=== PATIENT | male | born 2000 | race Caucasian/White ===

== ENCOUNTER 2019-12-06 10:28 | Outpatient (CLI) | payer OTHER ==
[~2019-12-06] VITALS: Ht 175.3 cm; Wt 59.4 kg
[2019-12-06 11:01] VITALS: BP 127/79; Ht 175.3 cm; Wt 59.4 kg
--- NOTE | 2019-12-06 11:50 | NUR ---
1115 DR VINCENT AT BEDSIDE TO TALK TO PT 1135 PT DISCHARGED FROM OUT PT WITH RX FOR INSTRUCTIONS TO NOT LIFT GREATER THAN 5LBS FOR 2 WEEKS
--- NOTE | 2019-12-07 08:14 | CN ---
PATIENT NAME:SHAISTA MORAN MEDICAL RECORD: [id number] : 98 LOCATION:[facility] ADMIT DATE: ACCOUNT: [id number] CONSULTING PHYSICIAN: MONTRELL VINCENT MD REFERRING PHYSICIAN: ELSA CONTEH MD DATE OF CONSULTATION: 12/06/2019 HISTORY: Mr. Moran was referred by us to Dr. Conteh. He is a 19-year-old white male in good health. Mr. Moran was experiencing some testicular pain, had ultrasound and examination by Dr. Conteh, which found both testicles to be normal. The patient does relate that he did have occasional discomfort and pain, and felt like his testicles had moved and were causing some discomfort when he would lie on his side and wake up after sleeping on his side at night. The patient also related that he was having some discomfort upon washing himself and in the testicular region. The patient related that his pain after examination from Dr. Conteh was about 7/10 and lasted for about 2-3 days. The patient presents today and relates that his pain is significantly improved and is probably 0/10. The patient also relates that however upon washing himself this morning, that his pain was about a 2/3 in the testicular area. The patient seems to relate that his pain is worse on the right side as opposed to the left side. The patient does relate some work history, lifts heavy pallets at work and related that the night that he first noticed the injury or the pain that he had been lifting some pallets and felt a strain or "tear" in that particular area. The patient was questioned if Dr. Conteh had felt for hernia examination and the patient related that Dr. Conteh had and that patient was negative for hernia on right or left side. The patient presented today at Dr. Conteh's request for consult for ilioinguinal nerve block. I discussed risks and procedures with the patient, injury to nerve and/or damage to structures around the area. The patient relates that since the pain was improving, was 0 to 10 today that perhaps if we can hold off, he felt that might be beneficial. I concurred with the patient, felt that perhaps holding off on doing a ilioinguinal nerve block unless necessary was probably the best course of action. I did give the patient discussed and the patient was given work reduction prescriptions to good to return to work, but not lift anything over 5 pounds for the next 2 weeks. The patient seemed very satisfied with a consult visit today related to the patient and gave the patient our number [phone] to contact us and reschedule if the patient's pain flared up and/or became mostly more painful. The patient related he would contact us if he felt that an ilioinguinal nerve block would benefit any pain that might increase. TRANSINT:[id number] Voice Confirmation ID: [id number] DOCUMENT ID: [id number] MONTRELL VINCENT MD at 0814 CC: [id number] DICTATION DATE: 12/06/19 1153 SUPERVISOR GRADING: 12/06/19 1339 DEP CLI 12/06/19 [id number] [place] [address]
== END 2019-12-06 11:56 | disposition home or self-care (01) ==
LOC: D.OPS 10:28 → D.SP 13:00
PROVIDERS: ATTEND Urology
DX: G57.83 Other specified mononeuropathies of bilateral lower limbs (principal)